=== PATIENT | male | born 1995 | race African-American/Black ===

== ENCOUNTER 2016-09-04 09:03 | Emergency (ER) | payer OTHER ==
--- NOTE | ~2016-09-04 | CR93 ---
[facility] A Service of [facility] RADIOLOGY TEXT RESULTS PATIENT: YARA VALE JR LOCATION: CFTX : [birth year] UNIT #: [id number] AGE: [address]: Elizabeth Hodges APRN SEX: M ORDER DR: [id number] [facility] [address]. [place], [place] [address] [id number] MR#: [id number] Acc #: [id number] NAME: YARA VALE JR : 1995 SEX: M STUDY DATE/TIME: 09/04/2016 9:58 UNIT: [facility] ROOM: STUDY DESCRIPTION: CR Elbow Min 3 Views Lt Attending Physician: Elizabeth Hodges A.P.R.N. Ordering Physician: Mingo Amos M.D. Primary Care Physician: Primary Care Physician No MEDICAL IMAGING REPORT This report is preliminary unless electronic signature is present EXAM Three views left elbow 09/04/2016 HISTORY Left posterior elbow pain for 3 days. Fell at work per patient. COMPARISON None. FINDINGS AP and lateral examination of the elbow shows satisfactory articulation of the humerus with the proximal radius and ulna. There is no identifiable fracture, dislocation, joint effusion, or radiopaque foreign body in the soft tissues. IMPRESSION Normal elbow. Dictated by... Eloisa Warren M.D. THIS IS AN ELECTRONICALLY VERIFIED REPORT Eloisa Warren M.D. at 09/05/2016 8:46 AM CHLOE/theresa TD: 09/04/2016 12:10 JOB #: [id number] MEDICAL IMAGING REPORT Page 1 of 1 COPY
[~2016-09-04 09:03] MED LIST: ACETAMINOPHEN PO; ADVAIR 1001 DISK W/D PO; ADVAIR 2501 DISK W/D; ADVAIR 2501 DISK W/D PO; ALBUTEROL17 GM INH; AMOXICILLIN PO; BENTYL20 MG PO; CETAPHIL CLEAN; CLARITIN10 MG; CLARITIN10 MG PO; CLINDESSE5.8 GM TOP; COMBIVENT MININEB INH; DOXYCYCLINE PO; DUONEB 2.5-0.5 M3 ML NEB; FLONASE 0.05% N16 G1; FLONASE16 GM; HYDROCODONE COUGH PO; HYDROCORTISONE28 GM TOP; HYDROQUINONE TOP; IBUPROFEN PO; IBUPROFEN600 MG PO; LOTRISONE CREAM45 GM TOP; MAGIC MOUTHWASH PO; MEDROL PO; NAPROSYN500 MG PO; PHENERGAN PO; PHENERGAN W/CO120 ML PO; PHENERGAN25 MG PO; PREDNISONE PO; ROBITUSSIN AC PO; RYBIX ODT50 MG PO; SINGULAIR; SINGULAIR PO; SYMBICORT; VICODIN 5/500 T1 TAB PO; VOLTAREN50 MG PO; WESTCORT15 GM TOP; ZANTAC PO; ZITHROMAX PO; ZOVIRAX PO; [UNRECOGNIZED DRUG - OTHER]
== END 2016-09-04 10:58 | disposition home or self-care (01) ==
LOC: CFTX 09:03 → CED 09:03 → CFTX 10:16
DX: S53.402A Unspecified sprain of left elbow, initial encounter (principal); J45.909 Unspecified asthma, uncomplicated; X58.XXXA Exposure to other specified factors, initial encounter; Y92.69 Other specified industrial and construction area as the place of occurrence of the external cause
CPT/HCPCS: 29540; 73080; 99283